=== PATIENT | female | born 1980 ===

== ENCOUNTER 2021-05-28 04:09 | Day surgery (SDC) | payer OTHER ==
[2021-05-25 14:25] VITALS: BMI 19.8
[2021-05-28] MEDS ORDERED: MIDAZOLAM HCL 2 MG/2 ML SINGLE DOSE VIAL ONE (14:29)
[2021-05-28] MEDS ORDERED: SUCCINYLCHOLINE CHLORIDE 200 MG/10 ML SYRINGE ONE (14:29)
[2021-05-28] MEDS ORDERED: PROPOFOL 20 ML ONE (14:29)
[2021-05-28] MEDS ORDERED: LIDOCAINE HCL 1% EPINEPHRINE 1:200,000 30 ML VIAL (PF) ONE (14:39)
[2021-05-28] MEDS ORDERED: BUPIVACAINE HCL/PF 0.5% (5MG/ML) 10 ML VIAL ONE (14:40)
[2021-05-28] MEDS ORDERED: SCOPOLAMINE HYDROBROMIDE 1 PATCH PATCH.TD72 ONE (15:01)
[2021-05-28] MEDS ORDERED: DEXMEDETOMIDINE HCL 200 MCG/2 ML IVPB ONE (15:18)
[2021-05-28] MEDS ORDERED: ACETAMINOPHEN INJECTION 100 ML IVPB ONE (15:36)
[2021-05-28] MEDS ORDERED: ceFAZolin SODIUM 1 GM VIAL IVPB ONE (15:48)
[2021-05-28] MEDS ORDERED: BUPIVACAINE HCL/PF 0.5% (5MG/ML) 10 ML VIAL IJ ONE (15:52)
[2021-05-28] MEDS ORDERED: ceFAZolin SODIUM 1 GM VIAL ONE (15:53)
[2021-05-28] MEDS ORDERED: DEXAMETHASONE SOD PHOSPHATE 4 MG/1 ML VIAL ONE (15:53)
[2021-05-28] MEDS ORDERED: KETAMINE HCL 200 MG/20 ML VIAL ONE (16:05)
[2021-05-28] MEDS ORDERED: ROCURONIUM BROMIDE 50 MG/5 ML SYRINGE ONE (16:28)
[2021-05-28] MEDS ORDERED: MICROFIBRILLAR COLLAGEN 1 GM EACH TP ONE (16:32)
[2021-05-28] MEDS ORDERED: ONDANSETRON 4 MG/2 ML VIAL IVPUSH PRN (17:03)
[2021-05-28] MEDS ORDERED: PROMETHAZINE HCL 25 MG/1 ML VIAL IVPUSH PRN (17:03)
[2021-05-28] MEDS ORDERED: LACTATED RINGERS SOLUTION 1,000 ML IV SCH (17:15)
[2021-05-28 18:17] VITALS: TEMP 97.2
[2021-05-28 19:34] VITALS: BP 115/65; PULSE 70
== END 2021-05-28 19:30 | disposition home or self-care (01) ==
LOC: JASU-SURG 04:09
PROVIDERS: ATTEND Surgery
PROC: 0G8J0ZZ Division of Thyroid Gland Isthmus, Open Approach (ICD-10-PCS; principal; 2021-05-28 15:30)
DX: E06.3 Autoimmune thyroiditis (principal)
CPT/HCPCS: 81025; 88307-TC; 94760